=== PATIENT | male | born 1945 | race Caucasian/White ===

== ENCOUNTER 2018-04-21 17:25 | Inpatient (IN) | payer MEDICARE ==
[2018-04-21] MEDS ORDERED: IOHEXOL 350 MG/ML 10 ML VIAL (for RAD DIAG) IVCONTRAST ONE (17:26)
[2018-04-21 17:40] VITALS: O2SAT 97
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
[2018-04-21 18:09] VITALS: O2SAT 98
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
[2018-04-21 18:44] VITALS: BP 143/80; PULSE 84; RESP 24; O2SAT 95
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
[2018-04-21] MEDS ORDERED: MORPHINE SULFATE 4 MG/ML INJ IV PUSH ONE (19:15)
[2018-04-21 19:19] LABS: AUTOMATED NEUTROPHIL # 12.4 TH/MM3 (1.8-7.7); BASOPHIL % 0.3 % (0.0-2.0); EOSINOPHIL % 0.1 % (0.0-4.0); HEMATOCRIT 43.9 % (39.0-51.0); HEMOGLOBIN 14.7 GM/DL (13.0-17.0); LYMPH % 6.3 % (9.0-44.0); LYMPHOCYTE # 0.9 TH/MM3 (1.0-4.8); MEAN CELL VOLUME 90.3 FL (80.0-100.0); MEAN CORPUSCULAR HEMOGLOBIN 30.2 PG (27.0-34.0); MEAN CORPUSCULAR HGB CONC 33.5 % (32.0-36.0); MEAN PLATELET VOLUME 9.8 FL (7.0-11.0); MONOCYTE # 0.9 TH/MM3 (0-0.9); NEUT % 87.3 % (16.0-70.0); PLATELET COUNT 227 TH/MM3 (150-450); RED BLOOD COUNT 4.87 MIL/MM3 (4.50-5.90); RED CELL DISTRIBUTION WIDTH 13.1 % (11.6-17.2); WHITE BLOOD COUNT 14.3 TH/MM3 (4.0-11.0)
[2018-04-21 19:30] LABS: PROTHROMBIN TIME - PATIENT 10.1 SEC (9.8-11.6)
--- NOTE | 2018-04-21 19:44 | PD ---
Physical Exam Date Seen by Provider: April 21, 2018 Time Seen by Provider: 19:43 Narrative Accepted in transfer of care from Dr. Jules GENERAL: Well-developed well-nourished male in no acute distress no respiratory distress resting supine; GCS 15 SKIN: Warm and dry. HEAD: Normocephalic. EYES: No scleral icterus. No injection or drainage. NECK: Supple, trachea midline. No JVD or lymphadenopathy. CARDIOVASCULAR: Regular rate and rhythm without murmurs, gallops, or rubs. RESPIRATORY: Breath sounds equal bilaterally. No accessory muscle use. GASTROINTESTINAL: Abdomen soft, non-tender, nondistended. MUSCULOSKELETAL: No cyanosis, or edema. Radial dorsalis pedis pulses 2+ to palpation bilaterally. Light touch sensory intact bilateral upper extremities and lower extremities. Bilateral equal communications professor strength and toe wiggle. No obvious deformities. Data Data Last Documented VS Vital Signs Date Time Temp Pulse Resp B/P (MAP) Pulse Ox O2 Delivery O2 Flow Rate FiO2 04/21/18 18:44 84 24 143/80 (101) 95 Room Air 04/21/18 18:09 21 Orders Orders I-Stat Profile (04/21/18 17:39) I-Stat Creatinine (04/21/18 17:39) Complete Blood Count With Diff (04/21/18 17:39) Prothrombin Time / Inr (Pt) (04/21/18 17:39) Act Partial Throm Time (Ptt) (04/21/18 17:39) Type And Screen (04/21/18 17:39) Chest, Single Ap (04/21/18 17:39) Iv Access Insert/Monitor (04/21/18 17:39) Ecg Monitoring (04/21/18 17:39) Oximetry (04/21/18 17:39) Oxygen Administration (04/21/18 17:39) Ed Poc Ultrasound (04/21/18 17:39) Ct Brain W/O Iv Contrast(Rout) (04/21/18 17:46) Ct Cerv Spine W/O Contrast (04/21/18 17:46) Ct Thorax/ Chest W Iv Contrast (04/21/18 ) Ct Abd/Pel W Iv Contrast(Rout) (04/21/18 ) Hand, Complete ([id number]) (04/21/18 ) Morphine Inj (Morphine Inj) (04/21/18 19:15) Ct Lumb Spine W Iv Contrast (04/21/18 ) Iohexol 350 Inj (Omnipaque 350 Inj) (04/21/18 17:26) Pantry Goods Worker / Telemetry [id number].Q8H (04/21/18 21:08) Diet Npo (04/22/18 Breakfast) Activity Bed Rest (04/21/18 21:08) Notify Dr: Other (04/21/18 21:08) ^ Other Nursing Orders (04/21/18 21:08) ^ For Further Orders (04/21/18 21:08) Labs Laboratory Tests Test 04/21/18 18:45 White Blood Count 14.3 TH/MM3 Red Blood Count 4.87 MIL/MM3 Hemoglobin 14.7 GM/DL Bedside Hemoglobin 14.6 G/DL Hematocrit 43.9 % Bedside Hematocrit 43.0 % Mean Corpuscular Volume 90.3 FL Mean Corpuscular Hemoglobin 30.2 PG Mean Corpuscular Hemoglobin Concent 33.5 % Red Cell Distribution Width 13.1 % Platelet Count 227 TH/MM3 Mean Platelet Volume 9.8 FL Neutrophils (%) (Auto) 87.3 % Lymphocytes (%) (Auto) 6.3 % Monocytes (%) (Auto) 6.0 % Eosinophils (%) (Auto) 0.1 % Basophils (%) (Auto) 0.3 % Neutrophils # (Auto) 12.4 TH/MM3 Lymphocytes # (Auto) 0.9 TH/MM3 Monocytes # (Auto) 0.9 TH/MM3 Eosinophils # (Auto) 0.0 TH/MM3 Basophils # (Auto) 0.0 TH/MM3 CBC Comment DIFF FINAL Differential Comment Prothrombin Time 10.1 SEC Prothromb Time International Ratio 1.0 RATIO Activated Partial Thromboplast Time 24.0 SEC Bedside Sodium 140 MMOL/L Bedside Potassium 3.8 MMOL/L Bedside Chloride 102 MMOL/L Bedside Blood Urea Nitrogen 18 MG/DL Bedside Creatinine 1.0 MG/DL Bedside Glucose 100 MG/DL [facility] Medical Record Reviewed: Yes Supervised Visit with MARYANN: No Interpretation(s) Last Impressions Head CT 04/21/181745 Signed Impressions: CONCLUSION: 1. Negative trauma study. Cervical Spine CT 04/21/181745 Signed Impressions: CONCLUSION: 1. Negative trauma CT Chest X-Ray 04/21/181738 Signed Impressions: CONCLUSION: Minimal basilar dependent atelectasis in the lungs. No effusion or pneumothorax . Lumbar Spine CT 04/21/18 0000 Signed Impressions: CONCLUSION: 1. Moderate compression fracture deformity of the T12 vertebral body with slig ht retropulsion of the posterior superior aspect of the vertebral body with sli ght flattening of anterior thecal sac. 2. The lumbar vertebral bodies are intact. 3. Degenerative disc and degenerative joint changes 4. Moderate scoliosis. Hand X-Ray 04/21/18 0000 Signed Impressions: CONCLUSION: No evidence of recent bony injury. Chest CT 04/21/18 0000 Signed Impressions: CONCLUSION: 1. Negative trauma CT. Abdomen/Pelvis CT 04/21/18 0000 Signed Impressions: CONCLUSION: 1. Comminuted fracture deformity of the T12 vertebral body. Please see lumbar spine CT report for further details. 2. No evidence of visceral injury. 3. Mildly nonspecific, nonobstructive bowel gas pattern most characteristic of an ileus. CBC & BMP Diagram 04/21/18 18:45 Vital Signs Date Time Temp Pulse Resp B/P (MAP) Pulse Ox O2 Delivery O2 Flow Rate FiO2 04/21/18 18:44 84 24 143/80 (101) 95 Room Air 04/21/18 18:09 98 21 04/21/18 18:09 97 Room Air 04/21/18 17:40 97 21 Differential Diagnosis Accepted in transfer of care from Dr. Jules; please refer to her dictation Narrative Course Accepted in transfer of care from Dr. Jules; follow up imaging studies; at 7: 44 PM patient in route to CT imaging department Patient is aware the CT brain and CT cervical spine reveal no acute abnormality as well as chest x-ray and hand x-ray revealed no acute bony abnormality or pneumothorax. Patient is aware he is waiting on CT of the chest abdomen and pelvis and the lumbar spine. Patient does complain of low back pain and states he has chronic low back pain. Patient is able wiggle his toes has intact sensation and dorsalis pedis pulses 2+ bilaterally with brisk less than 2 second capillary refill per digit also patient is able to move upper extremities bilaterally with good communications professor strength bilaterally sensory exam again is intact and radial pulses are 2+ to palpation. CT thorax reveals no acute abnormality CT abdomen pelvis reveals mild ileus and T12 comminuted compression fracture CT lumbar spine reveals comminuted T12 compression fracture with slight retropulsion posterior superior aspect of vertebral body and slight flattening the anterior thecal sac degenerative joint disease degenerative disc disease mild scoliosis Call placed to trauma surgeon @ 9:20 trauma surgeon at the bedside Physician Communication Physician Communication call placed to the trauma surgeon Dr Martins--admit to [facility] his service and consult to NS; discussed with Dr Donato --bedrest will put in back brace TLSO tomorrow Diagnosis Primary Impression: T12 compression fracture Additional Impression: Ileus Admitting Information Admitting Physician Requests: Admit Scripts No Active Prescriptions or Reported Meds Aydee Jaquez MD April 21, 2018 19:44
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
[2018-04-21] MEDS: SODIUM CHLOR 0.9% 1000 ML INJ 1,000 ML IV SCH (21:26)
[2018-04-21] MEDS ORDERED: BISACODYL 10 MG SUPP RECTAL PRN (21:30)
[2018-04-21] MEDS ORDERED: LACTULOSE SYRUP 20 GM/30 ML CUP PO PRN (21:30)
[2018-04-21] MEDS ORDERED: NURSING INFORMATION XX SCH (21:30)
[2018-04-21] MEDS ORDERED: CHLORHEXIDINE GLUCONATE 2 % 1 PACK (2 CLOTHS) TOP PRN (21:30)
[2018-04-21] MEDS ORDERED: SENNOSIDES 8.6 MG TAB PO PRN (21:30)
[2018-04-21] MEDS ORDERED: MAGNESIUM HYDROXIDE SUSP 30 ML CUP PO PRN (21:30)
[2018-04-21] MEDS ORDERED: ONDANSETRON ODT 4 MG TAB PO PRN (21:30)
[2018-04-21] MEDS ORDERED: ACETAMINOPHEN 325 MG TAB PO PRN (21:30)
[2018-04-21 21:51] VITALS: BP 135/65; PULSE 80; RESP 18; O2SAT 94
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
[2018-04-22] VITALS (8 sets, daily range): BP systolic 118–146; BP diastolic 55–69; PULSE 64–80; RESP 16–24; TEMP 97.7–98.8; O2SAT 94–98
[2018-04-22] MEDS: MORPHINE SULFATE 4 MG/ML INJ IV PUSH PRN ×3 (01:39→11:40)
[2018-04-22] MEDS ORDERED: CHLORHEXIDINE GLUCONATE 2 % 1 PACK (2 CLOTHS) TOP SCH (04:00)
[2018-04-22] MEDS: METHOCARBAMOL 500 MG TAB PO SCH ×3 (06:30→21:52)
[2018-04-22 07:18] LABS: AUTOMATED NEUTROPHIL # 8.3 TH/MM3 (1.8-7.7); BASOPHIL % 0.2 % (0.0-2.0); EOSINOPHIL % 0.1 % (0.0-4.0); HEMATOCRIT 40.2 % (39.0-51.0); HEMOGLOBIN 13.7 GM/DL (13.0-17.0); LYMPH % 9.7 % (9.0-44.0); MEAN CELL VOLUME 90.4 FL (80.0-100.0); MEAN CORPUSCULAR HEMOGLOBIN 30.9 PG (27.0-34.0); MEAN CORPUSCULAR HGB CONC 34.2 % (32.0-36.0); MEAN PLATELET VOLUME 9.3 FL (7.0-11.0); MONO % 8.5 % (0.0-8.0); MONOCYTE # 0.9 TH/MM3 (0-0.9); NEUT % 81.5 % (16.0-70.0); PLATELET COUNT 184 TH/MM3 (150-450); RED BLOOD COUNT 4.44 MIL/MM3 (4.50-5.90); RED CELL DISTRIBUTION WIDTH 13.2 % (11.6-17.2); WHITE BLOOD COUNT 10.2 TH/MM3 (4.0-11.0)
[2018-04-22 07:48] LABS: BICARBONATE 27.7 MEQ/L (21.0-32.0); CALCIUM 8.4 MG/DL (8.5-10.1); CREATININE 0.83 MG/DL (0.60-1.30)
[2018-04-22] MEDS: DOCUSATE SODIUM 50 MG/SENNA 8.6 MG TAB PO SCH ×2 (08:07→21:53)
[2018-04-22] MEDS: BACITRACIN TOP OINT 15 GM TUBE TOPICAL SCH ×2 (10:00→21:00)
[2018-04-22] MEDS: SODIUM CHLOR 0.9% 1000 ML INJ 1,000 ML IV SCH ×2 (11:40→21:55)
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
[2018-04-22] MEDS: oxyCODONE/ACETAMINOPHEN 5 MG/325 MG TAB PO PRN ×2 (14:51→21:54)
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
[2018-04-23 00:01] VITALS: BP 123/58; PULSE 70; RESP 18; TEMP 98.6; O2SAT 93
[2018-04-23 04:00] VITALS: BP 115/55; PULSE 68; RESP 17; TEMP 98.5; O2SAT 93
[2018-04-23 04:17] LABS: AUTOMATED NEUTROPHIL # 7.6 TH/MM3 (1.8-7.7); BASOPHIL % 0.2 % (0.0-2.0); EOSINOPHIL # 0.1 TH/MM3 (0-0.4); EOSINOPHIL % 1.3 % (0.0-4.0); HEMOGLOBIN 12.7 GM/DL (13.0-17.0); LYMPH % 12.6 % (9.0-44.0); LYMPHOCYTE # 1.2 TH/MM3 (1.0-4.8); MEAN CELL VOLUME 89.7 FL (80.0-100.0); MEAN CORPUSCULAR HEMOGLOBIN 30.7 PG (27.0-34.0); MEAN CORPUSCULAR HGB CONC 34.2 % (32.0-36.0); MEAN PLATELET VOLUME 9.4 FL (7.0-11.0); MONO % 6.8 % (0.0-8.0); MONOCYTE # 0.7 TH/MM3 (0-0.9); NEUT % 79.1 % (16.0-70.0); PLATELET COUNT 162 TH/MM3 (150-450); RED BLOOD COUNT 4.13 MIL/MM3 (4.50-5.90); WHITE BLOOD COUNT 9.6 TH/MM3 (4.0-11.0)
[2018-04-23 04:49] LABS: BICARBONATE 26.1 MEQ/L (21.0-32.0); CALCIUM 7.5 MG/DL (8.5-10.1); CREATININE 0.82 MG/DL (0.60-1.30)
[2018-04-23] MEDS: oxyCODONE/ACETAMINOPHEN 5 MG/325 MG TAB PO PRN ×3 (06:19→14:00)
[2018-04-23] MEDS: METHOCARBAMOL 500 MG TAB PO SCH ×3 (06:19→21:18)
[2018-04-23 08:00] VITALS: BP 127/59; PULSE 75; RESP 18; TEMP 99.1; O2SAT 97
[2018-04-23] MEDS: DOCUSATE SODIUM 50 MG/SENNA 8.6 MG TAB PO SCH ×2 (09:26→21:00)
[2018-04-23] MEDS: MAGNESIUM HYDROXIDE SUSP 30 ML CUP PO SCH ×2 (09:26→21:00)
[2018-04-23] MEDS: FAMOTIDINE 20 MG TAB PO SCH ×2 (09:26→21:00)
[2018-04-23] MEDS: SODIUM CHLOR 0.9% 1000 ML INJ 1,000 ML IV SCH ×2 (09:28→21:06)
[2018-04-23] MEDS: BACITRACIN TOP OINT 15 GM TUBE TOPICAL SCH ×2 (09:28→21:00)
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
[2018-04-23 11:45] VITALS: BP 129/61; PULSE 72; RESP 18; TEMP 98.2; O2SAT 93
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
[2018-04-23] MEDS: ENOXAPARIN SODIUM 30 MG/0.3 ML SYRINGE SQ SCH (12:00)
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
[2018-04-23 20:00] VITALS: BP 123/60; PULSE 69; RESP 18; TEMP 98.9; O2SAT 95
[2018-04-24] VITALS: BP 125/61; PULSE 65; RESP 18; TEMP 98.4; O2SAT 96
[2018-04-24] MEDS: ENOXAPARIN SODIUM 30 MG/0.3 ML SYRINGE SQ SCH (00:02)
[2018-04-24] MEDS: oxyCODONE/ACETAMINOPHEN 5 MG/325 MG TAB PO PRN ×2 (01:07→09:20)
[2018-04-24] MEDS: METHOCARBAMOL 500 MG TAB PO SCH (05:23)
[2018-04-24] MEDS ORDERED: PERI PO (07:48)
[2018-04-24] MEDS ORDERED: MAGN30S PO (07:48)
--- NOTE | 2018-04-24 07:49 | HHI.FF ---
Face to Face Verification Diagnosis: (1) T12 compression fracture Physical Therapy Order: Evaluate and Treat, Improve ambulation, Strength and gait training Home Health Nursing Order: Medical education Signs/symptoms of disease process Medication education-adverse effect Nursing assessment with vital signs I have seen patient Julius Valiente on 04/24/18. My clinical findings support the need for the requested home health care services because: Ltd mobility - disease progression Deconditioned w/ increased weakness Limited ability to care for self High risk of falls I certify that my clinical findings support that this patient is homebound because: Post-op weakness Unsteady gait/balance Unsafe to leave home unassisted Ehm-koopelwlyy-oxgipyjo bed/chair Unable to use public transportation Judi Pablo April 24, 2018 07:49
[2018-04-24] MEDS ORDERED: BEDSIDE COMMODE1 MI1 (07:51)
[2018-04-24] MEDS ORDERED: WALKER WHEELS/F1 MIS (07:51)
[2018-04-24 08:00] VITALS: BP 129/62; PULSE 62; RESP 16; TEMP 97.7; O2SAT 95
[2018-04-24] MEDS: BACITRACIN TOP OINT 15 GM TUBE TOPICAL SCH (09:00)
[2018-04-24] MEDS: SODIUM CHLOR 0.9% 1000 ML INJ 1,000 ML IV SCH (09:01)
[2018-04-24] MEDS: DOCUSATE SODIUM 50 MG/SENNA 8.6 MG TAB PO SCH (09:19)
[2018-04-24] MEDS: MAGNESIUM HYDROXIDE SUSP 30 ML CUP PO SCH (09:19)
[2018-04-24] MEDS: FAMOTIDINE 20 MG TAB PO SCH (09:19)
[2018-04-24] MEDS ORDERED: METH500T3 PO (11:15)
[2018-04-24] MEDS ORDERED: OXYC1TAB63 PO (11:15)
[2018-04-24 12:00] VITALS: BP 113/59; PULSE 62; RESP 16; TEMP 97.6; O2SAT 96
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
== END 2018-04-24 16:01 | disposition home health service (06) | DRG 552 ==
LOC: NEPC 17:25 → NEDA 21:17 → N03B 04-22 00:29 → N06B 04-22 13:55
PROVIDERS: ADMIT Surgery Trauma Surgery; ATTEND Surgery Trauma Surgery
DX: S22.080A Wedge compression fracture of T11-T12 vertebra, initial encounter for closed fracture (principal); K56.7 Ileus, unspecified; S00.81XA Abrasion of other part of head, initial encounter; M41.9 Scoliosis, unspecified; M51.36 Other intervertebral disc degeneration, lumbar region; S50.312A Abrasion of left elbow, initial encounter; M19.90 Unspecified osteoarthritis, unspecified site; V95.8XXA Other powered aircraft accidents injuring occupant, initial encounter; Z87.891 Personal history of nicotine dependence
CPT/HCPCS: 70450; 71045; 71260; 72020; 72100; 72125; 72128; 72132; 73130; 74177; 80048; 85025; 85610; 85730; 86850; 86900; 86901; 87641; 94150; 96374; J1650; J2270; J7030; L0200; L0484; Q9967